=== PATIENT | female | born 1960 | race Caucasian/White ===

== ENCOUNTER 2016-10-30 06:26 | Day surgery (SDC) | payer OTHER ==
[~2016-10-30] VITALS: Ht 165.1 cm; Wt 66.0 kg
[2016-10-30] MEDS ORDERED: LACTATED RINGERS 1,000 ML IV SCH (07:15)
[2016-10-30 07:18] VITALS: BP 109/78
[2016-10-30] MEDS ORDERED: VITAMIN B PO (07:48)
[2016-10-30] MEDS ORDERED: CHOL10003 PO (07:48)
[2016-10-30] MEDS ORDERED: FERR325T20 PO (07:48)
[2016-10-30] MEDS ORDERED: ALBU90AE INH (07:48)
[2016-10-30] MEDS ORDERED: ASPI-496 PO (07:48)
[2016-10-30] MEDS ORDERED: RIVA20TA PO (07:48)
[2016-10-30] MEDS ORDERED: PRAS10TA4 PO (07:48)
[2016-10-30 08:18] LABS: ASPARTATE AMINO TRANSFERASE 29 U/L (15-37); BLOOD UREA NITROGEN 9 mg/dL (7-18)
[2016-10-30] MEDS ORDERED: VANC250C2 PO (09:28)
[2016-10-31] MEDS ORDERED: ATOR40TA78 PO (17:08)
== END 2016-10-30 08:04 | disposition home or self-care (01) ==
LOC: OUT 06:26
PROVIDERS: ATTEND Internal Medicine Gastroenterology
DX: K92.1 Melena (principal); Z53.9 Procedure and treatment not carried out, unspecified reason; D12.2 Benign neoplasm of ascending colon; D12.4 Benign neoplasm of descending colon; D12.5 Benign neoplasm of sigmoid colon; Z88.6 Allergy status to analgesic agent; Z88.8 Allergy status to other drugs, medicaments and biological substances
CPT/HCPCS: 36415; 80053; 82962; 85025; 93005; J7120

== ENCOUNTER 2016-10-30 08:08 | Inpatient (IN) | payer OTHER ==
[~2016-10-30] VITALS: Ht 165.1 cm; Wt 67.3 kg
[~2016-10-30 08:08] MED LIST: ALBU90AE INH; ASPI-496 PO; CHOL10003 PO; FERR325T20 PO; PRAS10TA4 PO; RIVA20TA PO; VITAMIN B PO
[2016-10-30] MEDS ORDERED: VANC250C2 PO (09:28)
[2016-10-30] MEDS ORDERED: OMNIPAQUE 350 MG/ML, 100ML BOTTLE ONE ×2 (09:39→09:49)
[2016-10-30] MEDS ORDERED: GADOBUTROL 7.5 MMOL/7.5 ML PFS ONE (10:57)
[2016-10-30 11:45] VITALS: BP 134/90
[2016-10-30 12:49] VITALS: BP 125/75
[2016-10-30] MEDS ORDERED: SODIUM CHLORIDE 0.9% 1,000 ML IV SCH (16:26)
[2016-10-30] MEDS ORDERED: ENALAPRILAT 1.25 MG/ML, 2ML IVPush PRN (16:30)
[2016-10-30] MEDS ORDERED: ONDANSETRON 2MG/ML, 2ML IVPush PRN (16:30)
[2016-10-30] MEDS ORDERED: LABETALOL 5MG/ML, 20ML IVPush PRN (16:30)
[2016-10-30] MEDS: VANCOMYCIN 50 MG/ML ORAL SUSP PO SCH (17:35)
[2016-10-30] MEDS: FERROUS SULFATE 325 MG TABLET PO SCH (17:35)
[2016-10-30] MEDS: PRASUGREL 10 MG TABLET PO SCH (17:35)
[2016-10-30 19:49] VITALS: BP 125/79
[2016-10-30] MEDS: RIVAROXABAN 20 MG TABLET PO SCH (21:00)
[2016-10-31 00:36] VITALS: BP 109/71
[2016-10-31 05:31] LABS: BLOOD UREA NITROGEN 9 mg/dL (7-18)
[2016-10-31 05:42] LABS: ASPARTATE AMINO TRANSFERASE 21 U/L (15-37)
[2016-10-31 07:33] VITALS: BP 99/63
[2016-10-31] MEDS: PRASUGREL 10 MG TABLET PO SCH (08:37)
[2016-10-31] MEDS: FERROUS SULFATE 325 MG TABLET PO SCH ×2 (08:37→16:59)
[2016-10-31] MEDS: VANCOMYCIN 50 MG/ML ORAL SUSP PO SCH (08:38)
[2016-10-31 12:55] VITALS: BP 127/75
[2016-10-31] MEDS ORDERED: OMNIPAQUE 350 MG/ML, 100ML BOTTLE ONE (16:26)
[2016-10-31] MEDS: RIVAROXABAN 20 MG TABLET PO SCH (16:55)
[2016-10-31] MEDS ORDERED: ATOR40TA78 PO (17:08)
[2016-10-31] MEDS ORDERED: ATORVASTATIN 40 MG TABLET PO SCH (21:00)
[2016-10-31] MEDS ORDERED: ATORVASTATIN 20 MG TABLET PO SCH (21:00)
== END 2016-10-31 17:50 | disposition home or self-care (01) | DRG 65 ==
LOC: ED 08:34 → EDIP 09:33 → 4WST 11:00
PROVIDERS: ATTEND Internal Medicine
DX: I63.9 Cerebral infarction, unspecified (principal); A04.7 Enterocolitis due to Clostridium difficile; D68.69 Other thrombophilia; H55.00 Unspecified nystagmus; H53.2 Diplopia; D53.9 Nutritional anemia, unspecified; Z88.1 Allergy status to other antibiotic agents; Z88.5 Allergy status to narcotic agent; Z91.018 Allergy to other foods; Z87.891 Personal history of nicotine dependence; Z79.01 Long term (current) use of anticoagulants; Z86.718 Personal history of other venous thrombosis and embolism
CPT/HCPCS: 36415; 70450; 70496; 70498; 70553; 80053; 80061; 83735; 84100; 84443; 85025; 85520; 85610; 85730; 93306; 99291; A9585; J3370; Q9967; 92523-GN; J7030